=== PATIENT | female | born 1950 | race Caucasian/White ===

== ENCOUNTER → 2020-02-28 13:47 | Outpatient (CLI) | payer MEDICARE, SELFPAY ==
--- NOTE | ~2020-02-28 | MM_ITS ---
EXAMINATION: MM screening [facility] BI w ki HISTORY: Screening TECHNIQUE: Craniocaudal and mediolateral oblique 3-D tomosynthesis images were obtained and synthetic 2-D images were generated. CAD analysis was submitted and interpreted. COMPARISON: Comparison to multiple prior studies sequentially, with oldest reviewed study dated 08/2013. BREAST PARENCHYMAL COMPOSITION: There are scattered areas of fibroglandular density. FINDINGS: There is no evidence of suspicious mass, calcification, or architectural distortion to sugg est malignancy in either breast. There has been no suspicious interval change. IMPRESSION: 1. No mammographic evidence of malignancy. 2. Recommend routine screening mammography in one year. BI-RADS Category 1: Negative Reviewed, dictated and finalized at location A. RAM ANALYST
== END ==
PROVIDERS: PCP Family Medicine Adolescent Medicine; Visit Provider Family Medicine Adolescent Medicine
DX: Z12.31 Encounter for screening mammogram for malignant neoplasm of breast (principal)
CPT/HCPCS: 77063; 77067

== ENCOUNTER → 2020-06-25 02:11 | Outpatient (CLI) | payer MEDICARE, SELFPAY ==
[2020-06-25 19:19] LABS: SARS-CoV-2 RNA PCR Negative
== END ==
PROVIDERS: PCP Family Medicine Adolescent Medicine; Visit Provider Internal Medicine Gastroenterology
DX: Z01.812 Encounter for preprocedural laboratory examination (principal); Z20.822 Contact with and (suspected) exposure to COVID-19
CPT/HCPCS: C9803; U0003; U0005

== ENCOUNTER 2020-06-28 00:32 | Day surgery (SDC) | payer MEDICARE, SELFPAY ==
[2020-06-15 14:37] VITALS: BMI 31.4
[2020-06-28 06:44] VITALS: BP 159/103; PULSE 70; RESP 17; TEMP 36.1; O2SAT 99; BMI 35.0
--- NOTE | 2020-06-28 06:51 | WPDANESEPPF ---
Anes - Initial Pre Proc Eval Procedure: Operation Date: 06/28/20 07:30 Proposed Procedures p Screening Colonoscopy - Davi Evans DO Date/Time: 06/28/20 06:51 Surgeon: Davi Evans DO Pre Op Diagnosis: Neoplasm Screening, Hx of colon Polyps Patient Data Age: 70 Gender: F Height: 5 ft 7 in Weight: 101.6 kg Last Vital Signs Temp 36.1 C L 06/28/20 06:44 Pulse 70 06/28/20 06:44 Resp 17 06/28/20 06:44 BP 159/103 H 06/28/20 06:44 Pulse Ox 99 06/28/20 06:44 Allergies Allergy/AdvReac Type Severity Reaction Status Date / Time codeine AdvReac Mild N/V Verified 06/28/20 06:42 Home Medications Medication Instructions Recorded Confirmed Type multivitamin 1 tablet PO DAILY 07/21/19 06/28/20 History omeprazole 40 mg capsule,delayed 40 mg PO DAILY 07/21/19 06/28/20 History release lorazepam 1 mg PO BID PRN 06/15/20 06/28/20 History losartan 100 mg PO DAILY 06/15/20 06/28/20 History metoprolol succinate 100 mg PO HS 06/15/20 06/28/20 History Patient hx anesthesia problems: none Family hx anesthesia problems: none PMFSH Past Medical History Medical History Acid reflux Anxiety High cholesterol Hypertension Kidney stones Osteoporosis Surgical History Surgical History H/O colonoscopy H/O knee surgery S/P tubal ligation [place] teeth removed Family History Family History Mother Acute myocardial infarction Father Family history of primary malignant neoplasm of liver Carcinoma of colon Blood clot in vein Unknown Breast cancer Social History Social History Alcohol intake: current Drinks per week: 3 Substance use: current Substance use type: marijuana Living arrangements: with family Gender identity (if verbalized by the patient): Female Spiritual care concerns: No Anes - Eval Final PreProcedure Day of Procedure 06/28/20 06:51 Patient weight: obese Heart: regular rate and rhythm Lungs: clear to auscultation Airway: Mallampati scale class II Neurological: alert and oriented Last oral intake: >/= 8 hours ASA classification: III Emergent: no Anesthetic plan: proceed Anesthesia type and monitoring: general GIVS and standard monitoring Informed Consent: The patient's anesthetic plan and its attendant risks and benefits were discussed with the patient/family/POA. Questions were solicited and answers provided to the satisfaction of the patient/family/POA.
[2020-06-28] MEDS: LACTATED RINGERS 1,000 ML 150 ML IV CONT (07:00)
--- NOTE | 2020-06-28 07:22 | P.CONGI_ITS ---
GI Consult Note Consult date/time: 06/28/20 07:22 HPI: Reason for visit is colonoscopy. This very pleasant lady seen in consultation request of the primary physician. Impression: Screening and surveillance colonoscopy. The patient has a history of hyperplastic colon polyps and a family history of colon cancer. GERD. Anxiety. HTN. HLD. Osteoporosis. Kidney stones. Recommendation: Colonoscopy. Impression: Very pleasant lady has a history of hyperplastic colon polyps and a family history of colon cancer. Her GI review systems unremarkable. He does have a history reflux disease controlled with medication. Physical examination: General: very pleasant patient in no acute distress. HEENT: Head was normocephalic sclerae is clear mouth without masses neck was supple. Heart: Rate rhythm regular without S3 or S4. Lungs: CTA. Abdomen: Soft with no guarding or rigidity. Bowel sounds were active. Neurologic: Cranial nerves 2 through 12 intact. No focal defects. No clonus. Musculoskeletal system: Revealed no joint tenderness or swelling no muscle atrophy. Extremities: Reveal no significant edema. Skin: Warm and dry with normal turgor. Mental status: intact. Patient is alert and oriented. Review of Systems Review of Systems: All systems reviewed & are unremarkable except as noted in HPI and below PMFSH Past Medical History Medical History (Updated 06/28/20 @ 07:24 by Davi Evans DO) Anxiety GERD (gastroesophageal reflux disease) High cholesterol Hypertension Kidney stones Osteoporosis Surgical History Surgical History H/O colonoscopy H/O knee surgery S/P tubal ligation [place] teeth removed Family History Family History Mother Acute myocardial infarction Father Family history of primary malignant neoplasm of liver Carcinoma of colon Blood clot in vein Unknown Breast cancer Social History Social History Alcohol intake: current Drinks per week: 3 Substance use: current Substance use type: marijuana Living arrangements: with family Gender identity (if verbalized by the patient): Female Spiritual care concerns: No Meds Home Medications and Allergies Home Medications Medication Instructions Recorded Confirmed Type multivitamin 1 tablet PO DAILY 07/21/19 06/28/20 History omeprazole 40 mg capsule,delayed 40 mg PO DAILY 07/21/19 06/28/20 History release lorazepam 1 mg PO BID PRN 06/15/20 06/28/20 History losartan 100 mg PO DAILY 06/15/20 06/28/20 History metoprolol succinate 100 mg PO HS 06/15/20 06/28/20 History Allergies Allergy/AdvReac Type Severity Reaction Status Date / Time codeine AdvReac Mild N/V Verified 06/28/20 06:42 Vital Signs Vital Signs - 24 hr 06/28/20 06:44 Temperature 36.1 C L Pulse Rate 70 Respiratory Rate 17 Blood Pressure 159/103 H Pulse Oximetry 99
[2020-06-28 07:42] VITALS: BP 104/55; PULSE 64; RESP 24; O2SAT 100
[2020-06-28 07:52] VITALS: BP 112/63; PULSE 59; RESP 19; O2SAT 100
[2020-06-28 08:02] VITALS: BP 142/76; PULSE 57; RESP 17; O2SAT 100
== END 2020-06-28 08:03 | disposition home or self-care (01) ==
PROVIDERS: PCP Family Medicine Adolescent Medicine; Visit Provider Internal Medicine Gastroenterology
PROC: 0DJD8ZZ Inspection of Lower Intestinal Tract, Via Natural or Artificial Opening Endoscopic (ICD-10-PCS; CPT 45378; principal; 2020-06-28 07:30)
DX: Z12.11 Encounter for screening for malignant neoplasm of colon (principal); K57.30 Diverticulosis of large intestine without perforation or abscess without bleeding; Z86.010 Personal history of colon polyps; I10 Essential (primary) hypertension; E78.5 Hyperlipidemia, unspecified; M81.0 Age-related osteoporosis without current pathological fracture; F41.9 Anxiety disorder, unspecified; Z80.0 Family history of malignant neoplasm of digestive organs; F12.90 Cannabis use, unspecified, uncomplicated; E66.9 Obesity, unspecified; Z68.35 Body mass index [BMI] 35.0-35.9, adult
CPT/HCPCS: G0105; J2704; J7120

== ENCOUNTER → 2021-03-07 12:29 | Outpatient (CLI) | payer MEDICARE, SELFPAY ==
--- NOTE | ~2021-03-07 | MM_ITS ---
EXAMINATION: MM screening [facility] BI w ki HISTORY: Screening TECHNIQUE: Craniocaudal and mediolateral oblique 3-D tomosynthesis images were obtained and synthetic 2-D images were generated. CAD analysis was submitted and interpreted. COMPARISON: No prior mammogram is available for comparison at this institution. BREAST PARENCHYMAL COMPOSITION: There are scattered areas of fibroglandular density. FINDINGS: There is no evidence of suspicious mass, calcification, or architectural distortion to sugg est malignancy in either breast. There has been no suspicious interval change. IMPRESSION: 1. No mammographic evidence of malignancy. 2. Recommend routine screening mammography in one year. BI-RADS Category 1: Negative Reviewed, dictated and finalized at location A. ARTISAN
== END ==
PROVIDERS: Visit Provider Family Medicine Adolescent Medicine
DX: Z12.31 Encounter for screening mammogram for malignant neoplasm of breast (principal)
CPT/HCPCS: 77063; 77067

== ENCOUNTER → 2021-07-26 12:45 | Outpatient (CLI) | payer MEDICARE, SELFPAY ==
--- NOTE | ~2021-07-26 | DEXA_ITS ---
Bone Density Report Name: LEONID BEAVERS Age: 71 Sex: Female Ethnicity: White Date of : 1950 Indication: osteopenia; height loss; prior fracture; postmenopausal Referring Provider: KENNY RAJPUT Study: Bone densitometry was performed. Exam Date: July 26, 2021 Accession number: [id number] Bone Density: Region BMD T-score Z-score Classification AP Spine (L1-L4) 0.770 -2.5 -0.5 Osteoporosis Femoral Neck (Left) 0.677 -1.6 0.2 Osteopenia Total Hip (Left) 0.875 -0.6 0.9 Normal Femoral Neck (Right) 0.682 -1.5 0.2 Osteopenia Total Hip (Right) 0.872 -0.6 0.9 Normal Total Hip Mean 0.874 -0.6 0.9 Normal World Health Organization criteria for BMD impression classify patients as: Normal (T-score at or above -1.0), Osteopenia (T-score between -1.0 and -2.5), or Osteoporosis (T-score at or below -2.5). 10-year Fracture Risk: FRAX not reported because: Some T-score for Spine Total or Hip Total or Femoral Neck at or below -2.5 Previous Exams: Region Exam Age BMD T-score BMD Change BMD Change Date g/cm2 vs Baseline vs Previous AP Spine(L1-L4) 07/26/2021 71 0.770 -2.5 -0.064 -0.009 09/21/2014 64 0.779 -2.4 -0.054* 0.032* 03/31/2011 61 0.747 -2.7 -0.087* -0.033* 08/04/2008 58 0.780 -2.4 -0.054* -0.054* 08/03/2006 56 0.833 -1.9 Total Hip(Left) 07/26/2021 71 0.875 -0.6 -0.068 0.000 09/21/2014 64 0.874 -0.6 -0.068* 0.014 03/31/2011 61 0.860 -0.7 -0.083* 0.008 08/04/2008 58 0.852 -0.7 -0.090* -0.090* 08/03/2006 56 0.943 0.0 Total Hip(Right) 07/26/2021 71 0.872 -0.6 -0.077 -0.034 09/21/2014 64 0.906 -0.3 -0.043* 0.028* 03/31/2011 61 0.878 -0.5 -0.071* 0.034* 08/04/2008 58 0.844 -0.8 -0.105* -0.105* 08/03/2006 56 0.949 0.1 *Denotes significance at 95% confidence level, LSC for AP Spine = 0.022 g/cm2, LSC for Total Hip = 0.027 g/cm2 Clinical Information Provided by Patient: Has had a low trauma fracture Patient maximum height was 67 Menopause Age: 56 Drinks caffeinated beverages Onset of menses at age 14 Number of children 0 Impression: The patient has established osteoporosis, based on the Total Spine T-score and the existence of a prior fracture. The patient has risk factors, including:
== END ==
DX: M81.0 Age-related osteoporosis without current pathological fracture (principal); M85.852 Other specified disorders of bone density and structure, left thigh; M85.851 Other specified disorders of bone density and structure, right thigh
CPT/HCPCS: 77080

== ENCOUNTER 2021-09-22 08:03 | Emergency (ER) | payer MEDICARE, SELFPAY ==
[2021-09-22] VITALS (7 sets, daily range): BP systolic 122–176; BP diastolic 88–107; PULSE 76–87; RESP 16–20; TEMP 37; O2SAT 97–99
--- NOTE | ~2021-09-22 | XR_ITS ---
XR chest 2V DATE: 09/22/2021 08:43 INDICATION: Shortness of breath for one week TECHNIQUE: PA and lateral views COMPARISON: 05/01/2015 PA and lateral chest FINDINGS: Normal heart size. Aortic calcification and mild unfolding. No hilar or mediastinal enlarge ment. Moderate bilateral hyperinflation. No pulmonary infiltrate or consolidation, pleural effusion or pulm onary vascular congestion or pneumothorax. Osteopenia. IMPRESSIONS: No active cardiopulmonary disease Aortic atherosclerosis Osteopenia Reviewed, dictated and finalized at location A. IMPRESSIONS: No active cardiopulmonary disease Aortic atherosclerosis Osteopenia
--- NOTE | ~2021-09-22 | CT_ITS ---
EXAMINATION: CTA chest PE protocol DATE: 09/22/2021 13:15 INDICATION: Pulmonary embolism TECHNIQUE: Computed tomography angiography (CTA) of the chest was performed with 100 mL Omnipaque-350 intravenous contrast timed to evaluate the pulmonary arteries. Coronal maximum intensity projection 3D-reconstructions were created by the technologist. Automated exposure control and iterative reconst ruction technique were employed. Exam dose: 788.95 mGy-cm total exam DLP. COMPARISON: None. FINDINGS: There is diagnostic contrast enhancement of the pulmonary arteries and no evidence of pulmo nary embolism. The ascending aorta measures up to 4.7 cm transverse diameter. The aortic arch and descending thorac ic aorta measure up to 3.1 cm diameter Mild discoid atelectasis or scarring, anterior basilar left lower lobe. No pulmonary infiltrate or consolidation or pulmonary mass lesion. 4 mm right lower lobe nodular density (series 4 image 65). Approximately 2.4 cm low attenuation left adrenal mass, likely an adrenal adenoma. Prominent degenerative disc disease at lower thoracic spine. IMPRESSION: No evidence of pulmonary embolism Thoracic aortic aneurysm Reviewed, dictated and finalized at Location A. Reviewed, dictated and finalized at location A.
--- NOTE | 2021-09-22 08:23 | ED.SOB ---
HPI - SOB/Dyspnea General Chief Complaint: Shortness of Breath/Dyspnea Stated Complaint: SOB Time Seen by Provider: 09/22/21 08:18 Source: patient Mode of arrival: ambulatory Limitations: no limitations History of Present Illness HPI Narrative: 71 years old white female presented with intermittent shortness of breath for the last 7 days, headache, chest tightness, not feeling well for the last few days. She denies any fever, chills, nausea, vomiting. Patient is fully vaccinated and boosted for COVID-19. Patient does not smoke, drinks occasionally, no history of asthma or COPD. Patient lives with her who tested negative for COVID few days ago. Patient also tested negative at home few days ago. Related Data Home Medications Medication Instructions Recorded Confirmed multivitamin (Daily Multi-Vitamin 1 tablet PO DAILY 07/21/19 06/28/20 tablet) atorvastatin 20 mg tablet 20 mg PO DAILY 05/06/21 magnesium 250 mg tablet 250 mg PO DAILY 05/06/21 metoprolol succinate 200 mg 200 mg PO DAILY 05/08/21 tablet,extended release 24 hr Allergies Allergy/AdvReac Type Severity Reaction Status Date / Time zolpidem AdvReac Severe suicidal Verified 05/03/21 12:51 lisinopril AdvReac Intermediate cough Verified 05/03/21 12:51 codeine AdvReac Mild N/V Verified 06/28/20 06:42 Review of Systems Review of Systems: All systems reviewed & are unremarkable except as noted in HPI and below PMFSH Past Medical History Medical History Anxiety GERD (gastroesophageal reflux disease) High cholesterol Hypertension Kidney stones Normal colonoscopy 07/06 Osteoporosis Surgical History Surgical History H/O colonoscopy H/O knee surgery S/P tubal ligation [place] teeth removed Family History Family History Mother Acute myocardial infarction Father Family history of primary malignant neoplasm of liver Carcinoma of colon Blood clot in vein Colon polyp Unknown Breast cancer Other Hypertension Social History Social History Smoking status: Never smoker Second hand tobacco smoke exposure: Yes Alcohol intake: current Drinks per week: 3 Substance use: never Substance use type: does not use Gender identity (if verbalized by the patient): Female Sexual Orientation (if Verbalized by the Patient): Straight or Heterosexual Spiritual care concerns: No Agree to blood products: Yes Exam Narrative: General appearance: Well-developed, well-nourished Skin: Normal color Head: Normocephalic, nontraumatic Eyes: Clear conjunctiva ENT: Oropharynx normal, ears normal, nose normal Neck: Supple, nontender Chest and respiratory: Airway patent, no respiratory distress, no accessory muscle use Heart: Regular rate/rhythm Abdomen: Soft, nontender, no organomegaly, quiet bowel sounds Vascular: Normal peripheral pulses, normal capillary refill. Musculoskeletal: Normal range of motion, nontender back Neurologic: Alert and oriented ?3, CLINICAL QUALITY ANALYST is normal as tested, no gross motor deficit Course Course Emergency Course: Work-up today showed that the patient have COVID infection. I believe patient can go home, her oxygenation on room air is 95.7, patient does not look in pain or distress. Patient does not smoke, no history of COPD, does not have fever or chills nausea or vomiting. Patient EKG showed atrial fibrillation with normal ventricular response, new diagnosis, chads score is 1. Patient is eligible for anticoagulant medication. I cannot
--- NOTE | 2021-09-22 08:24 | ECG_ITS ---
Measurements Intervals [place] Rate: 85 P: [place]: 0 QRS: 22 QRSD: 87 T: 30 QT: 351 QTc: 418 Interpretive Statements ATRIAL FIBRILLATION ABNORMAL RHYTHM ECG COMPARED TO ECG 04/27/2018 12:26:20 ATRIAL FIBRILLATION NOW PRESENT Electronically Signed On 09-22-2021 8:28:23 CDT by Giles Guzman M.D.
[2021-09-22 08:45] LABS: Basophils Percent Auto 0.3 % (0.2-1.2); Eosinophils Percent Auto 0.5 % (0-4.4); Hematocrit 45.3 % (37.0-47.0); Hemoglobin 14.7 g/dL (12.0-15.0); Immature Granulocyte Absolute 0.03 K/mm3 (0.00-0.031); Immature Granulocyte Percent A 0.4 % (0-0.5); Lymphocytes Absolute Auto 1.19 K/mm3 (0.9-3.2); Lymphocytes Percent Auto 15.2 % (18.3-44.2); Mean Corpuscular HGB Conc 32.5 g/dl (32-36); Mean Corpuscular Hemoglobin 30.8 pg (26-34); Mean Platelet Volume 9.2 fl (7.4-10.4); Monocytes Absolute Auto 1.1 K/mm3 (0.1-0.6); Monocytes Percent Auto 14.1 % (2.6-8.5); Neutrophils Absolute Auto 5.5 K/mm3 (1.3-6.7); Neutrophils Percent Auto 69.5 % (45.5-73.1); Platelet Count Result 292 k/mm3 (150-375); Red Blood Count 4.77 M/mm3 (4.2-5.4); Red Cell Distribution Width 13.2 % (11.5-14.5); White Blood Count 7.9 K/mm3 (4.5-10.0)
[2021-09-22 09:02] LABS: Partial Thromboplastin Time 27.2 SECONDS (22.3-36.8)
[2021-09-22 09:04] LABS: Alanine Aminotransferase 26 U/L (6-35); Albumin Level 4.6 g/dL (3.5-5.1); Alkaline Phosphatase 97 U/L (38-126); Anion Gap 10 mmol/L (8-16); Aspartate Amino Transferase 35 U/L (14-36); Bilirubin,Total 0.6 mg/dL (0.2-1.3); Blood Urea Nitrogen 13 mg/dL (7-17); Calcium 9.4 mg/dL (8.4-10.2); Carbon Dioxide 26 mmol/L (22-30); Chloride 100 mmol/L (98-107); Estimated CRCL calculation 59 ml/min; Estimated Glomerular Filt Rate > 60; Glucose 135 mg/dL (65-110); Potassium 4.4 mmol/L (3.4-5.0); Sodium 136 mmol/L (137-145)
[2021-09-22 09:22] LABS: SARS-CoV-2 RNA PCR Positive
[2021-09-22 09:31] LABS: NT Pro B Type Natriuretic Pept 4070 pg/mL (5-100); Troponin I < 0.012 ng/mL (0.000-0.034)
[2021-09-22 09:44] LABS: Alveolar/Arterial O2 Gradient 31.8 mmHg; Base Excess ABG 1.4 mEq/l (+/-2.0); Fractional Inspired Oxygen 21 %; HCO3 ABG 23.7 mEq/l (22.0-26.0); Oxygen Content ABG 20.1 %vol (16.0-22.0); Oxygen Saturation ABG 96.8 % (95.0-100.0); Oxyhemoglobin 95.7 % THb (90.0-100.0); PCO2 ABG 31.2 mmHg (35.0-45.0); PO2 ABG 80.6 mmHg (80.0-100.0); PO2 FiO2 Ratio Arterial Blood 3.84 %; Total Hemoglobin 14.9 g/dL (12.0-18.0); pH ABG 7.498 (7.350-7.450)
[2021-09-22 09:45] LABS: Device ROOM AIR; Site Drawn LEFT BRACHIAL
[2021-09-22 11:44] LABS: Troponin I < 0.012 ng/mL (0.000-0.034)
== END 2021-09-22 14:44 | disposition home or self-care (01) ==
PROVIDERS: Emergency Provider Emergency Medicine; PCP Family Medicine Adolescent Medicine
DX: U07.1 COVID-19 (principal); I48.91 Unspecified atrial fibrillation; E78.00 Pure hypercholesterolemia, unspecified; I10 Essential (primary) hypertension; K21.9 Gastro-esophageal reflux disease without esophagitis; Z87.442 Personal history of urinary calculi; M81.0 Age-related osteoporosis without current pathological fracture; M85.88 Other specified disorders of bone density and structure, other site; I70.0 Atherosclerosis of aorta; I71.2 Thoracic aortic aneurysm, without rupture
CPT/HCPCS: 36415; 36600; 71046; 71275; 80053; 82805; 83880; 84484; 85025; 85380; 85610; 85730; 93005; 99284; C9803; Q9967; U0003; U0005

== ENCOUNTER 2021-11-14 07:40 | Outpatient (CLI) | payer MEDICARE, SELFPAY ==
--- NOTE | ~2021-11-14 | CT_ITS ---
EXAMINATION: CTA chest DATE: 11/14/2021 08:16 INDICATION: Ascending aortic aneurysm TECHNIQUE: Computed tomographic angiography (CTA) of the chest was performed with 100 mL Omnipque-350 intravenous contrast. Maximum intensity projection 3D-reconstructions of the aorta and other arterie s were constructed by the technologist on a separate workstation. The dose-length product (DLP) was 6 79.67 mGy-cm. Automated exposure control and iterative reconstruction technique were employed. COMPARISON: 09/22/2021, 02/12/2013 FINDINGS: There is a 4.6 cm fusiform aneurysm of the ascending aorta measured at the level of the delvis n pulmonary artery. The aorta measures 3.7 cm at the sinuses of Valsalva. There is no dissection. The descending aorta is normal in caliber. The lungs are free of acute opacities. No pleural effusion or pneumothorax. No pathologically enlarged thoracic lymph nodes are identified. The heart size is norm al. There is a stable 4 mm nodule of the right middle lobe. There is mild atelectasis in the lower lo bes. There is moderate thoracic spondylosis. A 2.5 cm mass of the left adrenal gland is minimally robles nged since the 2012 comparison, most consistent with an adenoma. The splenic artery arises directly f rom the abdominal aorta. IMPRESSION: 1. 4.6 cm fusiform aneurysm of the ascending aorta without dissection. Reviewed, dictated and finalized at location A.
[2021-11-14 08:10] LABS: Estimated Glomerular Filt Rate > 60
== END 2021-11-14 07:41 | disposition home or self-care (01) ==
PROVIDERS: PCP Family Medicine Adolescent Medicine; Visit Provider Internal Medicine Cardiovascular Disease
DX: I71.2 Thoracic aortic aneurysm, without rupture (principal); M47.814 Spondylosis without myelopathy or radiculopathy, thoracic region
CPT/HCPCS: 71275; Q9967

== ENCOUNTER 2022-02-13 01:37 | Day surgery (SDC) | payer MEDICARE, SELFPAY ==
[2022-02-11 14:32] VITALS: BMI 31.4
[2022-02-13] VITALS (11 sets, daily range): BP systolic 96–161; BP diastolic 66–93; PULSE 54–81; RESP 14–22; TEMP 36.4; O2SAT 94–99; BMI 35.9
[2022-02-13 07:39] LABS: Basophils Percent Auto 0.4 % (0.2-1.2); Eosinophils Absolute Auto 0.1 K/mm3 (0-0.3); Eosinophils Percent Auto 2.1 % (0-4.4); Hemoglobin 14.1 g/dL (12.0-15.0); Immature Granulocyte Absolute 0.02 K/mm3 (0.00-0.031); Immature Granulocyte Percent A 0.3 % (0-0.5); Lymphocytes Absolute Auto 2.49 K/mm3 (0.9-3.2); Lymphocytes Percent Auto 37.1 % (18.3-44.2); Mean Corpuscular HGB Conc 33.6 g/dl (32-36); Mean Corpuscular Hemoglobin 31.3 pg (26-34); Mean Corpuscular Volume 93.1 fl (80-100); Mean Platelet Volume 8.8 fl (7.4-10.4); Monocytes Absolute Auto 0.7 K/mm3 (0.1-0.6); Monocytes Percent Auto 10.3 % (2.6-8.5); Neutrophils Absolute Auto 3.3 K/mm3 (1.3-6.7); Neutrophils Percent Auto 49.8 % (45.5-73.1); Platelet Count Result 316 k/mm3 (150-375); Red Blood Count 4.51 M/mm3 (4.2-5.4); Red Cell Distribution Width 12.9 % (11.5-14.5); White Blood Count 6.7 K/mm3 (4.5-10.0)
[2022-02-13 07:53] LABS: Prothrombin Time 12.7 Seconds (11.1-14.7)
[2022-02-13 07:55] LABS: Anion Gap 9 mmol/L (8-16); Blood Urea Nitrogen 26 mg/dL (7-17); Calcium 9.1 mg/dL (8.4-10.2); Carbon Dioxide 25 mmol/L (22-30); Chloride 107 mmol/L (98-107); Estimated CRCL calculation 72 ml/min; Estimated Glomerular Filt Rate > 60; Glucose 114 mg/dL (65-110); Potassium 4.5 mmol/L (3.4-5.0); Sodium 141 mmol/L (137-145)
--- NOTE | 2022-02-13 08:30 | WPDHPUPDATE1 ---
History and Physical Update Update Date/Time: 02/13/22 08:30 History and Physical has been reviewed, including an updated exam of the patient. There are NO changes in the patient's condition. Risks, benefits, and alternatives have been discussed and questions answered. Patient agrees to proceed with procedure.
--- NOTE | 2022-02-13 08:30 | WPDMODSED ---
Moderate Sedation Note-Pt Data Patient Data Diagnosis: ascending aortic aneurysm, aortic regurgitation, preoperative evaluation Present Complaint: none history and physical update: Patient is a very pleasant 71-year-old female with a past medical history explained recurrent near-syncope syncope hypertension, hyperlipidemia recently found to have an ascending aortic aneurysm with moderate aortic regurgitation who was evaluated by Cardiothoracic surgery recommended surgical repair now being seen for preoperative transesophageal echocardiogram for further evaluation the anatomy the aortic valve, severity of aortic regurgitation and preoperative left heart catheterization for delineation her coronary anatomy. Impression/plan of care: Preoperative evaluation prior to ascending aortic aneurysm repair and aortic regurgitation hypertension hyperlipidemia recommendations to follow post [place] and left heart catheterization. Procedure to be performed/Plan: transesophageal echocardiogram followed by left heart catheterization with selective left and right coronary angiography with left ventriculography and hemodynamics Allergies Allergy/AdvReac Type Severity Reaction Status Date / Time zolpidem AdvReac Severe suicidal Verified 02/13/22 07:45 lisinopril AdvReac Intermediate cough Verified 02/13/22 07:45 Home Medications Medication Instructions Recorded Confirmed Type multivitamin (Daily Multi-Vitamin 1 tablet PO DAILY 07/21/19 02/11/22 History tablet) atorvastatin 20 mg tablet 20 mg PO DAILY 05/06/21 02/13/22 History magnesium 250 mg tablet 250 mg PO DAILY 05/06/21 02/13/22 History losartan 100 mg tablet 100 mg PO DAILY #90 tabs 09/16/21 02/13/22 Rx omeprazole 40 mg capsule,delayed 40 mg PO DAILY #90 caps 11/19/21 02/13/22 Rx release metoprolol succinate 200 mg 200 mg PO DAILY #90 tabs 12/12/21 02/13/22 Rx tablet,extended release 24 hr lorazepam 1 mg tablet 1 mg PO BID PRN Anxiety #60 tabs 12/13/21 02/13/22 Rx amlodipine 5 mg tablet 5 mg PO DAILY 02/11/22 02/13/22 History Current Medications: Active Medications Sodium Chloride (Normal Saline Iv) 1,000 mls @ 30 mls/hr IV CONT .Q24H SARA Sedation/Anesthesia: No previous sedation/anesthesia problems (including family history). [facility] Past Medical History Medical History Anxiety GERD (gastroesophageal reflux disease) High cholesterol Hypertension Kidney stones Normal colonoscopy 07/06 Osteoporosis Surgical History Surgical History H/O colonoscopy H/O knee surgery S/P tubal ligation [place] teeth removed Family History Family History Mother Acute myocardial infarction Father Family history of primary malignant neoplasm of liver Carcinoma of colon Blood clot in vein Colon polyp Unknown Breast cancer Other Hypertension Social History Social History Smoking status: Never smoker Second hand tobacco smoke exposure: Yes Alcohol intake: current Drinks per week: 3 Alcohol use details: 3-4/month Substance use: former Substance use type: marijuana Living arrangements: with family Gender identity (if verbalized by the patient): Female Sexual Orientation (if Verbalized by the Patient): Straight or Heterosexual Spiritual care concerns: No Agree to blood products: Yes Mod Sed Physical Exam Physical Exam Pre Procedural Exam: Normal: Appearance, Eyes, Ears, Nose, Neck ( neck is supple, normal range of motion), Throat ( posterior hypopharynx clear, nonerythematous), Airway ( normal anatomy, no obstruction), Lungs ( Clear to auscultation bilaterally), Heart Size, Heart Rate, Heart Rhythm, Neuro Exam, Abdomen, Extremities and Skin Hours since solid foods: 12 Hours since liquid intake: 12 M
--- NOTE | 2022-02-13 08:42 | WPDTEECHO ---
[facility] TransEsophageal Echocardiogram Date of procedure: 02/13/22 Procedure Type: transesophageal echocardiogram Diagnosis: preoperative evaluation, aortic regurgitation, ascending aortic aneurysm Indications: preoperative evaluation, aortic regurgitation, ascending aortic aneurysm Image Quality: acceptable Findings: Brief history present illness: Patient is a pleasant 71-year-old female with a history of hypertension, hyperlipidemia, near-syncope and syncope unexplained recently found to have ascending aortic aneurysm with moderate aortic regurgitation with recommendations for surgical repair now being seen for preoperative evaluation with transesophageal echocardiogram and left heart catheterization. Procedure in detail: After verbal and written informed consent was obtained the patient risks, benefits, and alternatives explained in detail the patient agreed to proceed with the plan of care as outlined above. The patient was evaluated at bedside in the Cardiac catheterization lab. The posterior oropharynx, neck, and jaw angle all within normal limits on examination. Lungs were clear to auscultation. See pre-sedation note for further details The patient was then placed in the appropriate 30 to 45 degree angle supine position at a slight left lateral decubitus position. Patient was monitored throughout the study with telemetry, oxygen saturation, end-tidal CO2 monitoring, blood pressure, heart rate, and respirations. The posterior hypopharynx was then locally anesthetized using repeated administration of Hurricaine spray as well as gargled viscous lidocaine. After local anesthetic of the posterior hypopharynx was achieved and the oral bite block placed, moderate sedation was administered. After confirmation of adequate moderate sedation, the transesophageal echocardiogram probe was advanced through the oral bite block into the posterior hypopharynx and into the esophagus easily and without complication. Multiple, multiplanar echocardiographic images were obtained in multiple standard re- projections. Pulsed wave, continuous-wave, and color-flow Doppler were utilized in conjunction with this study. At the conclusion of the study, the transesophageal echocardiogram probe was removed easily and without complication. The patient tolerated the procedure well without difficulty. Patient was in sinus rhythm throughout the study. Moderate Sedation/Anesthesia administration: Patient reports no prior problems with sedation/anesthesia. Please see pre-sedation noted for physical examination documentation. As noted above, after adequate local anesthesia of the posterior hypopharynx was achieved, a total of 4 mg intravenous Versed and a total of 100 mcg intravenous Fentanyl in multiple divided doses was administered for moderate sedation. Sedation start time was 0846 and end time was 0916 for a total intra-service/procedure face-face time of 30 minutes. Sedation was administered by a qualified/certified observer Sis Harkins RN under my supervision with intra-procedure [id number] observation and management throughout the entirety of the procedure. There were no other issues or complications and patient tolerated the procedure well. See post-anesthesia documentation. FINDINGS: LEFT VENTRICLE: mild left ventricular enlargement mild concentric left ventricular hypertrophy with preserved left ventricular systolic function visually estimated ejection fraction approximately 55-60%. No identified wall motion abnormality. RIGHT VENTRICLE: Size and systolic function within normal limits. LEFT ATRIUM: Mild left atrial enlargement. In several views difficult to characterize linear echodensity within the left atrium which appears to arise near the atrial septum suspicious for possible cor triatriatum membrane, however, this could not be confirmed in other views. Furthermore, service echocardiogram images in apical four-chamber view but not elsewhere. RIGHT AT
--- NOTE | 2022-02-13 10:54 | PM.OP ---
Procedure Note - Brief Procedure Note - Brief Date of procedure: 02/13/22 Pre-op diagnosis: Pre-op Aneurysm Surgery preoperative evaluation Post-op diagnosis: Other ( nonobstructive CAD, ascending aortic aneurysm) Procedure performed: left heart catheterization with selective left and right coronary angiography with left ventriculography and hemodynamics Description of procedure: BRIEF HISTORY OF PRESENT ILLNESS: Patient is a pleasant 71-year-old female with a past medical history significant for unexplained near-syncope syncope, hypertension, hyperlipidemia with recently diagnosed incidental ascending aortic aneurysm with suspicion for moderate aortic regurgitation referred for [facility] and left heart catheterization on a preoperative basis. PROCEDURES PERFORMED: 1. Left heart catheterization 2. Selective left and right coronary angiography 3. Left ventriculography and hemodynamics 4. Moderate/conscious sedation administration CATHETERS UTILIZED: Left coronary system- 5 Iranian FL4 catheter Right coronary system- 5 Iranian FR4 catheter Left ventriculography and hemodynamics- 5 Iranian angled pigtail catheter PROCEDURE IN DETAIL: After verbal and written informed consent was obtained the patient, risks, benefits, and alternatives explained in detail the patient agreed to proceed with the plan of care as outlined above. The patient was subsequently brought to the cardiac catheterization lab, placed on the cardiac catheterization table, and prepped and draped in the usual sterile fashion. Utilizing approximately 17cc of 1% subcutaneous Lidocaine, the right groin was then locally anesthetized. Utilizing the modified Seldinger technique, a 5 Iranian arterial vascular access sheath was inserted in the right common femoral artery easily and without complications. Through this access, coronary angiography was subsequently obtained in multiple standard re-projections. Following this, a 5 Iranian angled pigtail catheter was advanced retrograde across aortic valve into the cavity of the left ventricle. Left ventriculography was performed and pullback across aortic valve was subsequently recorded. The vascular access sheath and angiographic catheters were flushed before and after catheter exchanges. At the conclusion of the diagnostic portion of the procedure, all angiographic guidewires and catheters were removed and the 5 Iranian arterial vascular access sheath was then pulled and satisfactory hemostasis was achieved using manual compression. There no complications noted at the conclusion of the diagnostic portion of the study. MODERATE SEDATION/ANESTHESIA ADMINISTRATION: Patient reports no prior problems with sedation/anesthesia. Please see pre-sedation noted for physical examination documentation. Sedation start time was 0946 and end time was 1032 for a total intra-service/procedure face-face time of 46 minutes. A total of 1 mg intravenous Versed and a total of 50 mcg intravenous Fentanyl in multiple divided doses was administered for moderate sedation during this procedure. Moderate sedation was administered by qualified/certified observer Sis Harkins RN under my supervision with intra-procedure [id number] observation and management throughout the entirety of the procedure. There were no other issues or complications and patient tolerated the procedure well. See post-anesthesia documentation. Surgeon: Gerardo Hagan MD Estimated blood loss (mL): 15 Complications: No immediate complications Condition: Stable Disposition: Same day Findings: CORONARY ANGIOGRAPHY: The LEFT MAIN arose from the left coronary cusp and was without angiographically significant disease. The left main then bifurcated into the left anterior descending artery and circumflex coronary artery. LEFT ANTERIOR DESCENDING ARTERY: Moderate caliber vessel giving rise to small 1st and 2nd diagonal branches with mild nonobstructive disease in the proximal mid
--- NOTE | 2022-02-13 16:03 | SUR.PHASEII ---
phase 2 completed. RN provided discharge paperwork and explained the discharge instructions and new medications MD prescribed. pt wheeled out @1600 by RN.
== END 2022-02-13 16:00 | disposition home or self-care (01) ==
PROVIDERS: PCP Family Medicine Adolescent Medicine; Visit Provider Internal Medicine Cardiovascular Disease
PROC: 4A023N7 Measurement of Cardiac Sampling and Pressure, Left Heart, Percutaneous Approach (ICD-10-PCS; CPT 93452; principal; 2022-02-13 08:30)
PROC: (CPT 93312; 2022-02-13 08:30)
DX: Z01.810 Encounter for preprocedural cardiovascular examination (principal); I35.1 Nonrheumatic aortic (valve) insufficiency; I71.40 Abdominal aortic aneurysm, without rupture, unspecified; I25.10 Atherosclerotic heart disease of native coronary artery without angina pectoris; I10 Essential (primary) hypertension; E78.5 Hyperlipidemia, unspecified
CPT/HCPCS: 36415; 80048; 85025; 85610; 93312; 93320; 93325; 93458; C1769; C1887; C1894; J1644; J2250; J3010; J7030

== ENCOUNTER → 2022-05-05 12:31 | Outpatient (CLI) | payer MEDICARE, SELFPAY ==
--- NOTE | ~2022-05-05 | MM_ITS ---
EXAMINATION: MM screening amira BI w ki HISTORY: Screening TECHNIQUE: Craniocaudal and mediolateral oblique 3-D tomosynthesis images were obtained and synthetic 2-D images were generated. CAD analysis was submitted and interpreted. COMPARISON: 12/25/2014 BREAST PARENCHYMAL COMPOSITION: There are scattered areas of fibroglandular density. FINDINGS: There is no evidence of suspicious mass, calcification, or architectural distortion to sugg est malignancy in either breast. There has been no suspicious interval change. IMPRESSION: 1. No mammographic evidence of malignancy. 2. Recommend routine screening mammography in one year. BI-RADS Category 1: Negative Reviewed, dictated and finalized at location A.
== END ==
PROVIDERS: PCP Family Medicine Adolescent Medicine
DX: Z12.31 Encounter for screening mammogram for malignant neoplasm of breast (principal)
CPT/HCPCS: 77063; 77067

== ENCOUNTER 2023-04-23 11:00 | Outpatient (RCR) | payer MEDICARE, SELFPAY ==
[2022-12-30 11:06] VITALS: PULSE 75
== END 2023-04-23 23:59 | disposition home or self-care (01) ==
LOC: ANHCPREHAB 11:00
PROVIDERS: PCP Family Medicine Adolescent Medicine; Visit Provider Internal Medicine Cardiovascular Disease
DX: Z95.2 Presence of prosthetic heart valve (principal)
CPT/HCPCS: 93798

== ENCOUNTER 2023-10-12 14:10 | Emergency (ER) | payer MEDICARE, SELFPAY ==
[2023-10-12 15:45] VITALS: BP 159/88; PULSE 65; RESP 15; TEMP 36.4; O2SAT 98
--- NOTE | 2023-10-12 15:48 | ED.EPISTAXIS ---
HPI - Epistaxis General Chief complaint: Epistaxis Stated complaint: nose bleed Time Seen by Provider: 10/12/23 15:49 Focused HPI: This is a 73 year old female that presents to the ER for nosebleed. Reports she has been struggling with these lately. Today she was unable to get it to stop. She has packing in place from EMS. No blood thinners. GENERAL: Well-appearing, well-nourished, and in no acute distress. HEAD: Normocephalic, atraumatic. ENT: Packing in place in the left nare CHEST: Clear to auscultation. ?No respiratory distress. HEART: Regular rate and rhythm.? NEURO: ?Alert and oriented x3. Patient screened in triage and initial orders placed.? ?Additional care and disposition to be based upon?diagnostic testing and treatment. Related Data Home Medications Medication Instructions Recorded Confirmed atorvastatin 20 mg tablet 20 mg PO DAILY 05/06/21 10/05/23 magnesium 250 mg tablet 250 mg PO DAILY 05/06/21 10/05/23 amlodipine 5 mg tablet 5 mg PO DAILY 02/11/22 10/05/23 calcium carbonate (Calcium 600) 600 mg PO DAILY 06/23/22 10/05/23 furosemide 20 mg tablet 20 mg PO DAILY 12/30/22 10/05/23 metoprolol succinate 100 mg 100 mg PO DAILY 01/21/23 10/05/23 tablet,extended release 24 hr Allergies Allergy/AdvReac Type Severity Reaction Status Date / Time zolpidem AdvReac Severe suicidal Verified 10/12/23 15:48 lisinopril AdvReac Intermediate cough Verified 10/12/23 15:48 PMFSH Past Medical History Medical History (Updated 10/13/23 @ 10:33 by Esperanza Lackey PA-C) Anxiety Ascending aortic aneurysm 02/13/22 echo Atrial septal defect 02/13/22 echo bidirectional intra atrial shunt GERD (gastroesophageal reflux disease) High cholesterol Hypertension Kidney stones Moderate aortic regurgitation 02/13/22 median raphe between left and right coronary cusps; functional bicuspid valve Normal colonoscopy 07/06 Osteoporosis Surgical History Surgical History (Updated 10/06/23 @ 06:09 by Momo Baker MD) H/O colonoscopy H/O knee surgery History of aortic valve repair (11/2022) History of ascending aorta repair (11/2022) With closure of patent foramen ovale & aortic valve repair S/P tubal ligation [place] teeth removed Family History Family History (Updated 12/30/22 @ 11:28 by Jasmina Marvin RN) Mother Acute myocardial infarction Father Family history of primary malignant neoplasm of liver Carcinoma of colon Colon polyp Blood clot in vein Unknown Breast cancer Sibling Chronic obstructive pulmonary disease Other Hypertension Social History Social History (Updated 01/21/23 @ 11:12 by Georgia Becker CMA) Smoking status: Never smoker Second hand tobacco smoke exposure: Yes Alcohol intake: current Drinks per week: 3 Alcohol use details: 3-4/month Substance use: former Substance use type: marijuana Lack of Transportation: No Lack of Food: Never True Current Housing: I Have Housing Concerned About Future Housing: No Difficulty Paying Gas/Electric Bills: No Difficulty Paying for Meds: No Currently Unemployed: No Education: Associate Degree Difficulty w/ Childcare or Family Care: No Living arrangements: with family Occupation/Education: retired Gender identity (if verbalized by the patient): Female Sexual Orientation (if Verbalized by the Patient): Straight or Heterosexual Spiritual care concerns: No Agree to blood products: Yes Course Vital Signs Vital signs: Vital Signs Temperature 97.5 F L 10/12/23 15:45 Pulse Rate 65 10/12/23 15:45 Respiratory Rate 15 10/12/23 15:45 Blood Pressure 159/88 H 10/12/23 15:45 Pulse Oximetry 98 10/12/23 15:45 Oxygen Delivery Room Air 10/12/23 15:45 Temperature 97.5 F L 10/12/23 15:45 Pulse Rate 65 10/12/23 15:45 Respiratory Rate 15 10/12/23 15:45 Blood Pressure 159/88 H 10/12/23 15:45 Pulse Oximetry 98 10/12/23 15:45 Oxygen Delivery Room Air 10/12/23 15:45
--- NOTE | 2023-10-12 16:16 | PC.NURSE ---
PT DECIDED TO LEAVE SINCE NOSE STOPPED BLEEDING AND SHE IS FEELING BETTER. ADVISED TO RETURN IF NEEDED OR ANY CONCERNS. AMBULATORY FROM ED WITH SLOW,STEADY GAIT
== END 2023-10-12 17:32 | disposition left against medical advice (07) ==
LOC: ANHED 17:18
PROVIDERS: Emergency Provider Physician Assistant; PCP Family Medicine Adolescent Medicine
DX: R04.0 Epistaxis (principal); F41.9 Anxiety disorder, unspecified; K21.9 Gastro-esophageal reflux disease without esophagitis; I10 Essential (primary) hypertension; E78.5 Hyperlipidemia, unspecified; Z87.442 Personal history of urinary calculi
CPT/HCPCS: 99281

== ENCOUNTER 2024-03-14 16:04 | Outpatient (CLI) | payer MEDICARE, SELFPAY ==
--- NOTE | ~2024-03-14 | MM_ITS ---
EXAMINATION: MM screening amira BI w ki HISTORY: Screening TECHNIQUE: Craniocaudal and mediolateral oblique 3-D tomosynthesis images were obtained and synthetic 2-D images were generated. CAD analysis was submitted and interpreted. COMPARISON: Comparison to multiple prior studies sequentially, with oldest reviewed study dated 04/30. BREAST PARENCHYMAL COMPOSITION: Not dense: There are scattered areas of fibroglandular density. FINDINGS: There is no evidence of suspicious mass, calcification, or architectural distortion to sugg est malignancy in either breast. There has been no suspicious interval change. IMPRESSION: 1. No mammographic evidence of malignancy. 2. Recommend routine screening mammography in one year. BI-RADS Category 1: Negative Reviewed, dictated and finalized at location A. [employer]
== END 2024-03-14 16:05 | disposition home or self-care (01) ==
PROVIDERS: PCP Family Medicine Adolescent Medicine; Visit Provider Family Medicine Adolescent Medicine
DX: Z12.31 Encounter for screening mammogram for malignant neoplasm of breast (principal)
CPT/HCPCS: 77063; 77067